=== PATIENT | male | born 2000 | race Two or more races ===

== ENCOUNTER 2021-07-27 14:28 | Outpatient (REF) | payer OTHER, SELFPAY ==
[2021-07-27 15:36] LABS: Binax Internal Control QC Valid; Binax Lot number: 9864; Binax Now Covid-19 Ag Negative (Negative)
== END 2021-07-27 14:29 | disposition home or self-care (01) ==
LOC: HO.LAB 14:28
PROVIDERS: Visit Provider Internal Medicine
DX: Z20.822 Contact with and (suspected) exposure to COVID-19 (principal)
CPT/HCPCS: C9803

== ENCOUNTER 2022-08-15 21:56 | Emergency (ER) | payer OTHER, SELFPAY ==
--- NOTE | ~2022-08-15 | CT_ITS ---
EXAMINATION: CT ABDOMEN AND PELVIS WITHOUT CONTRAST CLINICAL INFORMATION: Periumbilical pain COMPARISON: None TECHNIQUE: Multidetector volumetric imaging was performed from the superior aspect of the liver through the pubic symphysis. Sagittal and coronal reformatted images were obtained on the technologist's workstation. This CT examination was performed using dose optimization techniques as appropriate, variously including the following: *Automated exposure control *Adjustment of mA and/or kV according to patient size (this includes techniques or standardized protocols for targeted exams where dose is matched to indication/reason for exam; i.e. extremities or head) *Use of iterative reconstruction technique DLP: 440 mGy-cm FINDINGS: LUNG BASES: The visualized lung bases are unremarkable. LIVER, GALLBLADDER, AND BILIARY TREE: The liver is normal in size, shape, and attenuation. No focal hepatic lesion or biliary ductal dilatation is present. The gallbladder is unremarkable with no evidence of radiopaque gallstones, gallbladder wall thickening, or obvious pericholecystic inflammatory changes. PANCREAS: Unremarkable. SPLEEN: Unremarkable. ADRENAL GLANDS: Unremarkable. KIDNEYS AND URETERS: The kidneys are normal in size, shape, and attenuation. No hydronephrosis, hydroureter, or calculi seen. No perinephric stranding. BLADDER: Unremarkable. GASTROINTESTINAL TRACT: The small and large bowel are unremarkable. The appendix is nonvisualized. No inflammation of the mesentery.. ABDOMINAL WALL: No significant hernia is appreciated. LYMPH NODES: Normal. VASCULAR: Unremarkable. PELVIC VISCERA: Unremarkable. OSSEOUS STRUCTURES: Unremarkable. CT/CT abdomen pelvis wo IV con IMPRESSION: No acute abnormality CT scan abdomen pelvis. Fleischner guidelines were followed.
--- NOTE | ~2022-08-15 | XR_ITS ---
EXAMINATION: XR CHEST CLINICAL INFORMATION: Leukocytosis COMPARISON: None TECHNIQUE: Frontal view of the chest was obtained. FINDINGS: No significant abnormality is noted involving the heart, lungs, mediastinum, bony thorax or soft tissues. XR/XR chest 1V IMPRESSION: Unremarkable examination.
[2022-08-15 22:07] VITALS: BP 117/80; PULSE 109; RESP 20; TEMP 36.6; O2SAT 98; BMI 22.4
[2022-08-15 22:37] LABS: Basophils Percent Auto 0.1 % (0-2); Eosinophils Percent Auto 0.1 % (0-4); Hematocrit 47.3 % (42.0-52.0); Hemoglobin 16.6 g/dl (14.0-18.0); Imm Gran Abs Auto 0.07 X10*3/uL (0.00-0.03); Imm Gran Pct Auto 0.4 % (0.0-0.4); Lymphocytes Absolute Auto 0.4 X10*3/uL (1.2-4.9); Lymphocytes Percent Auto 1.8 % (20-40); MANUAL DIFF FLAG SCAN; Mean Corpuscular HGB Conc 35.1 g/dl (31.0-36.0); Mean Corpuscular Hemoglobin 28.6 pg (27.0-33.0); Mean Corpuscular Volume 81.4 fL (80.0-98.0); Mean Platelet Volume 11.8 fL (9.4-12.4); Monocytes Absolute Auto 0.6 X10*3/uL (0.1-1.2); Monocytes Percent Auto 3.4 % (2-11); Neutrophils Percent Auto 94.2 % (45-73); Platelet Count 203 X10*3/uL (160-400); Red Blood Count 5.81 X10*6/uL (4.60-5.80); Red Cell Distribution Width 12.4 % (11.0-16.0); SCAN SMEAR FLAG 1; White Blood Count 19.1 X10*3/uL (4.8-10.8)
[2022-08-15 22:52] LABS: Alanine Aminotransferase 19 U/L (0-40); Albumin Level 4.6 g/dL (3.5-5.0); Alkaline Phosphatase 80 U/L (39-117); Anion Gap 15 (12-20); Aspartate Amino Transferase 15 U/L (5-37); Bilirubin Direct 0.3 mg/dL (0.0-0.5); Bilirubin Total 1.3 mg/dL (0.0-1.0); Blood Urea Nitrogen 17 mg/dL (9-16); Carbon Dioxide 22 mmol/L (22-29); Chloride 105 mmol/L (96-108); Creatinine Clr Calc Pharmacy 135.1; Estimated Glomerular Filt Rate > 60; Glucose Random 130 mg/dL (60-115); Lipase 13 U/L (8-78); Potassium 3.9 mmol/L (3.3-5.1); Sodium 138 mmol/L (135-145)
[2022-08-15 22:53] LABS: SLIDE REVIEW VERIFIED
[2022-08-15 23:12] LABS: Influenza A PCR NEGATIVE (Negative); Influenza B PCR NEGATIVE (Negative); Resp Syncy Virus RNA Qual PCR NEGATIVE (Negative); SARS COV2 PCR INHOUSE NEGATIVE (Negative)
[2022-08-16] MEDS: 0.9 % Sodium Chloride 1,000 ML 999 ML IV (00:17)
[2022-08-16] MEDS: ondansetron HCL 4 MG/2 ML VIAL IVPUSH (00:17)
[2022-08-16 00:36] VITALS: BP 123/81; PULSE 83; RESP 18; O2SAT 99
--- NOTE | 2022-08-16 01:47 | ED_ITS ---
HPI - General Adult General Chief complaint: Abdominal Pain Stated complaint: vomiting, abdominal pain, headache Time Seen by Provider: 08/16/22 00:00 Source: patient Mode of arrival: ambulatory Limitations: no limitations History of Present Illness HPI narrative: Patient comes to the emergency room complaining of nausea, vomiting, abdominal pain, diffuse body aches, headache starting this morning. Patient states that he is concerned, because his friend recently was brought into the emergency room here at [facility], according to the patient she was diagnosed with ?meningitis and is still pretty sick up on the floor. Related Data Previous Rx's Medication Instructions Recorded azithromycin 250 mg tablet 250 mg PO DAILY 5 days #6 tabs 02/21/21 (Zithromax) ondansetron 4 mg disintegrating 4 mg PO Q6H PRN nausea and 08/16/22 tablet vomiting #14 tabs Allergies Allergy/AdvReac Type Severity Reaction Status Date / Time No Known Allergies Allergy Verified 08/15/22 22:07 Review of Systems Review of Systems: Constitutional : No Weight loss, No Fever, No Chills, No Night Sweats, complaining of fatigue, generalized malaise ENT/Mouth : No Hearing loss, No Ear Pain, No Nasal Congestion, No Sinus Pain, No Hoarseness, No sore throat, No Rhinorrhea, No Swallowing Difficulty Eyes: No Eye Pain, No Swelling, No Redness, No Foreign Body, No Discharge, No Vision Changes Cardiovascular : No Chest Pain, No SOB, No Dyspnea on Exertion, No Orthopnea, No Edema, No Palpitations Respiratory : No Cough, No Sputum, No Wheezing, No Smoke Exposure, No Dyspnea Gastrointestinal : Complaining of nausea vomiting, No Diarrhea, No Constipation, complaining of diffuse abdominal cramping Genitourinary : no irregular bleeding, No Dysuria, No Urinary Frequency, No Hematuria, No Urinary Incontinence, No Urgency, No Flank Pain, No Urinary Flow Changes, No Hesitancy Musculoskeletal : complaining of diffuse Myalgias, complaining of lower extremity Joint pain bilaterally from the hips down Skin : No Skin Lesions, No rash Neuro : No Weakness, No Numbness, No Paresthesias, No Loss of Consciousness, No Dizziness, No Headache Psych : No Anxiety/Panic, No Depression, No SI/HI/AH/VH, No Social Issues, Heme/Lymph: No Bruising, No Bleeding,No Lymphadenopathy Endocrine : No Polyuria, No Polydipsia, No Temperature Intolerance [facility] [place] Social History Social History Smoked in Last 30 Days: No Advance Directives: No Advance Directives Information Provided: Yes Physical Exam ED Vital Signs: Vital Signs - 24 hr 08/15/22 22:07 08/16/22 00:36 Temperature 98 F Pulse Rate 109 H 83 Respiratory Rate 20 18 Blood Pressure 117/80 123/81 Pulse Oximetry 98 99 Oxygen Delivery Method Room Air Room Air BMI result Body Mass Index 22.4 Const Other: Appearance: Alert. Oriented X3. No acute distress. Well-appearing Eyes: Pupils equal, round and reactive to light. ENT: Pharynx normal. Neck: Normal inspection. Neck supple. No lymph nodes noted. No crepitus CVS: Normal heart rate and rhythm. Pulses normal. Normal S1 and S2 Respiratory: No respiratory distress. Breath sounds normal. No Wheezing. No rales Abdomen: Soft and nontender. No rigidity. No distention. Skin: Skin warm and dry. Normal skin color. Normal skin turgor. Extremities: No lower extremity edema. No Lacerations. No Rash Neuro: Oriented X 3. No motor deficit. No sensory deficit. Moving all extremities. No slurred speech. CN 2 through 12 grossly intact Psych: calm, cooperative, normal affect Course Course Course Narrative: -patient states that his close friend was recently diagnosed with meningitis, he does not know if it was bacterial or viral. -I was informed that the patient is here in this hospital. The patient gave me the other patient's name. I actually saw her in the emergency room a few days ago and I spoke to the hospitalist to admitted her. 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 However, we will do all the labs that we need to make sure that he is safe -patient's white blood cell count is 19, likely source of infection and his GI, gastroenteritis -I discussed the patient with Dr. Mclaughlin, Vinc[place]ena does not need any prophylactic medications. We will go ahead and obtain blood cultures, if positive, he will be called back. It would be very unlikely that the patient has a same condition. More than likely, patient has gastritis versus viral syndrome. Patient can be discharged home -patient's lactic acid and blood cultures are pending. The have been drawn in precaution given the above mentioned situation with the other patient Medications Administered Discontinued Medications Generic Name Dose Route Start Last Admin Trade Name Freq PRN Reason Stop Dose Admin Sodium Chloride 1,000 mls @ 999 mls/hr 08/15/22 23:45 08/16/22 00:17 Ns IV 08/16/22 00:45 999 mls/hr .Q1H1M JOHN Administration Ondansetron HCl 4 mg 08/15/22 23:51 08/16/22 00:17 Ondansetron Hcl 4 Mg/2 Ml Vial IVPUSH 08/15/22 23:52 4 mg ONCE ONE Administration Medical Decision Making Medical Decision Making [facility] Narrative: -patient's white blood cell count elevated likely secondary to reactive leukocytosis. Sepsis is not suspected. Patient's blood pressure 123/81, heart rate 83, no fever. Lactic acid may be secondary to vomiting. Still, sepsis not suspected Differential Diagnosis Differential Diagnoses: The differential diagnosis associated with the presentation includes (Gastroenteritis, peptic ulcer, gastritis) Consult Healthcare Provider Management of the patient was discussed with: Manager Molecular (Infectious disease) Lab Data [facility] Lab Attestation statement: I reviewed the patient's lab results. 08/15/22 22:30 08/15/22 22:30 Labs: Lab Results 08/15/22 08/15/22 08/15/22 Range/Units 22:30 22:30 22:30 WBC 19.1 H (4.8-10.8) X10*3/uL RBC 5.81 H (4.60-5.80) X10*6/uL Hgb 16.6 (14.0-18.0) g/dl Hct 47.3 (42.0-52.0) % MCV 81.4 (80.0-98.0) fL MCH 28.6 (27.0-33.0) pg MCHC 35.1 (31.0-36.0) g/dl RDW 12.4 (11.0-16.0) % Plt Count 203 (160-400) X10*3/uL MPV 11.8 (9.4-12.4) fL Immature Gran % (Auto) 0.4 (0.0-0.4) % Neut % (Auto) 94.2 H (45-73) % Lymph % (Auto) 1.8 L (20-40) % Dukes % (Auto) 3.4 (2-11) % Eos % (Auto) 0.1 (0-4) % Baso % (Auto) 0.1 (0-2) % Lymph # (Auto) 0.4 L (1.2-4.9) X10*3/uL Dukes # (Auto) 0.6 (0.1-1.2) X10*3/uL Eos # (Auto) 0.0 (0.0-0.4) X10*3/uL Baso # (Auto) 0.0 (0.0-0.2) X10*3/uL Abs Immat Gran (auto) 0.07 H (0.00-0.03) X10*3/uL Absolute Neuts (auto) 18.0 H (2.0-8.3) x10*3/uL Absolute Nucleated RBC 0.000 (0.0-0.012) X10*3/uL Nucleated RBC % (auto) 0.0 (0.0-0.2) /100WBC Smear Tech's Comments VERIFIED Sodium 138 (135-145) mmol/L Potassium 3.9 (3.3-5.1) mmol/L Chloride 105 (96-108) mmol/L Carbon Dioxide 22 (22-29) mmol/L Anion Gap 15 (12-20) BUN 17 H (9-16) mg/dL Creatinine 0.90 (0.5-1.4) mg/dL Estim Creat Clear Calc 135.1 Estimated GFR > 60 Random Glucose 130 H (60-115) mg/dL Calcium 10.0 (8.4-10.2) mg/dL Total Bilirubin 1.3 H (0.0-1.0) mg/dL Direct Bilirubin 0.3 (0.0-0.5) mg/dL AST 15 (5-37) U/L ALT 19 (0-40) U/L Alkaline Phosphatase 80 (39-117) U/L Total Protein 7.0 (6.5-8.0) g/dL Albumin 4.6 (3.5-5.0) g/dL Lipase 13 (8-78) U/L Influenza Type A (PCR) NEGATIVE (Negative) Influenza Type B (PCR) NEGATIVE (Negative) RSV RNA Qual (PCR) NEGATIVE (Negative) SARS-CoV-2 RNA (RT-PCR) NEGATIVE (Negative) Independent Interpretation Interpretation: Due to system failure, x-rays and CT scan program cannot open Radiology Impression Discussion of test interpretation with radiology: I have reviewed the radiologist's reading. Radiologist Impression: Chest x-ray: FINDINGS: No significant abnormality is noted involving the heart, lungs, mediastinum, bony thorax or soft tissues. XR/XR chest 1V IMPRESSION: Unremarkable examination. Abdomen pelvis CT scan: LUNG BASES: The visualized lung bases are unremarkable.? LIVER, GALLBLADDER, AND BILIARY TREE: The liver is normal in size, shape, and attenuation. No focal hepatic lesion or biliary ductal dilatation is present. The gallbladder is unremarkable with no evidence of radiopaque gallstones, gallbladder wall thickening, or obvious pericholecystic inflammatory changes.? PANCREAS: Unremarkable.? SPLEEN: Unremarkable.? ADRENAL GLANDS: Unremarkable.? KIDNEYS AND URETERS: The kidneys are normal in size, shape, and attenuation. No hydronephrosis, hydroureter, or calculi seen. No perinephric stranding. ? BLADDER: Unremarkable.? GASTROINTESTINAL TRACT: The small and large bowel are unremarkable. The appendix is nonvisualized. No inflammation of the mesentery..? ABDOMINAL WALL: No significant hernia is appreciated.? LYMPH NODES: Normal. VASCULAR: Unremarkable. PELVIC VISCERA: Unremarkable.? OSSEOUS STRUCTURES: Unremarkable.? CT/CT abdomen pelvis wo IV con IMPRESSION: No acute abnormality CT scan abdomen pelvis. ? Fleischner guidelines were followed. Discharge Plan Discharge Clinical Impression: Gastroenteritis Patient Disposition: Home, Self-Care Instructions: Gastroenteritis (ED), Acute Nausea and Vomiting (ED) Additional Instructions: Please follow-up with your primary care physician tomorrow. If you have any worsening or new symptoms, please return to the emergency room or call 911 Prescriptions: New ondansetron 4 mg tablet,disintegrating 4 mg PO Q6H PRN (Reason: nausea and vomiting) Qty: 14 0RF No Action azithromycin [Zithromax] 250 mg tablet 250 mg PO DAILY 5 Days Qty: 6 0RF
[2022-08-16] MEDS: Prochlorperazine Edisylate 10 MG/2 ML VIAL IVPUSH (02:14)
[2022-08-16] MEDS: Ketorolac Tromethamine 30 MG/ML VIAL IVPUSH (02:14)
[2022-08-16 02:40] LABS: Lactic Acid 0.8 mmol/L (0.5-2.0)
== END 2022-08-16 02:26 | disposition home or self-care (01) ==
PROVIDERS: Emergency Provider Emergency Medicine; PCP Internal Medicine
DX: K52.9 Noninfective gastroenteritis and colitis, unspecified (principal); Z20.822 Contact with and (suspected) exposure to COVID-19; Z20.828 Contact with and (suspected) exposure to other viral communicable diseases; Z79.899 Other long term (current) drug therapy
CPT/HCPCS: 0241U; 36415; 71045; 74176; 80048; 80076; 83605; 83690; 85025; 87040; 96361; 96374; 96375; 99284; J1885; J2405

== ENCOUNTER 2024-08-07 09:30 | Outpatient (REF) | payer OTHER, SELFPAY ==
[2024-08-07 15:07] LABS: Influenza A PCR NEGATIVE (Negative); Influenza B PCR NEGATIVE (Negative); Resp Syncy Virus RNA Qual PCR NEGATIVE (Negative); SARS COV2 PCR INHOUSE NEGATIVE (Negative)
== END 2024-08-07 09:31 | disposition home or self-care (01) ==
LOC: HO.LNP 09:30
PROVIDERS: Visit Provider Nurse Practitioner Family
DX: R09.89 Other specified symptoms and signs involving the circulatory and respiratory systems (principal); R68.89 Other general symptoms and signs; Z13.9 Encounter for screening, unspecified
CPT/HCPCS: 0241U; 87880; 99212

== ENCOUNTER 2025-03-08 08:14 | Outpatient (REF) | payer OTHER, SELFPAY ==
--- NOTE | ~2025-03-08 | XR_ITS ---
EXAMINATION: XR KNEE, RIGHT CLINICAL INFORMATION: M25.561 - Pain in right knee COMPARISON: None available. TECHNIQUE: Three views of the right knee. FINDINGS: No fracture or joint effusion. Alignment is anatomic. Joint spaces are maintained. No abnormal soft tissue calcification. XR/XR knee RT 3V IMPRESSION: Unremarkable right knee Electronically signed by: Antoni Cristina MD 03/08/2025 11:15 AM EDT
--- OUTSIDE RECORDS SUMMARY | 2025-03-10 08:39 | XMS_ITS | Clinical Summary ---
Author Organization [facility] [employer] [facility] ity Address [address] [place] [address] Care Team Providers Care Mill Set Up Name Role Phone Unavailable Primary Care Provider [...]
== END 2025-03-08 08:15 | disposition home or self-care (01) ==
LOC: HO.HOSX 08:14
PROVIDERS: Visit Provider Orthopaedic Surgery
DX: S83.241A Other tear of medial meniscus, current injury, right knee, initial encounter (principal); Y92.321 Football field as the place of occurrence of the external cause; Y92.322 Soccer field as the place of occurrence of the external cause; X58.XXXA Exposure to other specified factors, initial encounter
CPT/HCPCS: 73562; 99202

== ENCOUNTER 2025-03-08 10:47 | Outpatient (AMB) | payer OTHER, SELFPAY ==
--- NOTE | 2025-03-08 10:56 | A.OFFVIS_ITS ---
Vital Signs 03/08/25 11:00 Height 6 ft Weight 180 lb BMI 24.4 Intake Visit Reasons: Right knee pain and giving way Intake Note: Mikey is a 24 year old male who presents with complaints of progressively worsening right knee pain and giving way. He describes his pain as sharp in nature. Most of the pain is along the anterior and medial aspects of his knee. The patient states that he suffered several injuries to his right knee in the past while playing football and soccer. He has failed the last 6 weeks of conservative treatment which has included a home exercise program, physical therapy exercises, Tylenol and anti-inflammatory medicines. At this point is right knee pain and mechanical symptoms are interfering with his activities of daily living and his ability to sleep well through night. 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 Assessment & Plan Assessment & Plan (1) Tear of medial meniscus of right knee: Code(s): S83.241A - Other tear of medial meniscus, current injury, right knee, initial encounter Category: Medical Plan Mr. Benavidez presents with right knee pain and mechanical symptoms most likely due to a tear of his medial meniscus. Thus, I will send the patient for an MRI of his right knee for further evaluation. I will see him back once the MRI is completed to discuss the findings and treatment options. Feel free to call me at any time should questions regarding his orthopedic management arise. Thank you very much for asking me to see this very friendly gentleman. I spent 20 minutes in reviewing the patient's records and imaging studies, s eeing the patient and documenting in the medical record. Orders: Orders XR knee RT 3V Today M25.561 - Pain in right knee MR knee RT wo con 03/09/25 S83.241A - Other tear of medial meniscus, current injury, right knee, initial encounter Coding Level of Care Code New Pt Level 3 (54516) Complex EM visit Add On G2211 Diagnoses Tear of medial meniscus of right knee S83.241A
[2025-03-08 11:00] VITALS: BMI 24.4
--- OUTSIDE RECORDS SUMMARY | 2025-03-08 11:39 | XMS_ITS | Clinical Summary ---
Author Organization [facility] [email or web address] [facility] ity Address [address] [place] [address] Care Team Providers Care Emt B Name Role Phone Unavailable Primary Care Provider Unavailabl e Social History Tobacco Use Types Packs/Day Years Used Date Smoking Tobacco: Never Assessed Sex and Gender Information Value Date Recorded Sex Assigned at Not on file Legal Sex Male 3:01 AM EST Gender Identity Not on file Sexual Orientation Not on file Plan of Treatment Health Maintenance Due Date Last Done Comments HPV Vaccines (1 - Male 3-dos e series) 2013 DTaP,Tdap,and Td Vaccines (1 - Tdap) 2017 Hepatitis B Vaccines (1 of 3 - 19+ 3-dose series) 2017 HIV Screening 06/16/2022 Hepatitis C Screening 06/16/2022 Social Influencers of Health Screening 06/16/2022 COVID-19 Vaccine (1 - 2023-2 5 season) 2024 Depression Screening 07/14/2024 Influenza Vaccine (#1) 2025 HIB Vaccines Aged Out No longer eligi ble based on patient's age to complete this topic Hepatitis A Vaccines Aged Out No long er eligible based on patient's age to complete this topic IPV Vaccines Aged Out No longer eligi ble based on patient's age to complete this topic MMR Vaccines Aged Out No longer eligi ble based on patient's age to complete this topic Meningococcal ACWY Vaccine Aged Out N o longer eligible based on patient's age to complete this topic Meningococcal B Vaccine Aged Out No l onger eligible based on patient's age to complete this topic Pneumococcal Vaccine: Pediat rics (0 to 5 Years) and At-Risk Patients (6 to 49 Years) Aged Out No longer eligible b ased on patient's age to complete this topic RSV Immunization Patients Un shonna 20 months Aged Out No longer eligible b ased on patient's age to complete this topic Varicella Vaccines Aged Out No longer eligible based on patient's age to complete this topic
--- OUTSIDE RECORDS SUMMARY | 2025-03-08 11:39 | XMS_ITS ---
Author Name [facility] Organization Unknown Care Team Organization Name Specialty Phone Email Start Date End Da te [facility]ev [facility] 05/21/2022 4
== END 2025-03-08 11:27 | disposition home or self-care (01) ==
LOC: HO.HOS 10:48
PROVIDERS: PCP Internal Medicine; Visit Provider Orthopaedic Surgery
DX: S83.241A Other tear of medial meniscus, current injury, right knee, initial encounter (principal)
CPT/HCPCS: 99203

== ENCOUNTER → 2025-03-08 10:51 | Outpatient (BNV) | payer OTHER, SELFPAY | PROVIDERS: Visit Provider Radiology Diagnostic Radiology | DX: M25.561 Pain in right knee (principal) | CPT/HCPCS: 73562 ==

== ENCOUNTER 2025-03-30 11:32 | Outpatient (AMB) | payer OTHER, SELFPAY ==
[2025-03-30 11:38] VITALS: BP 126/74; PULSE 85; TEMP 37.3; O2SAT 97; BMI 25.8
--- NOTE | 2025-03-30 11:38 | AM.OFFWIN_ITS ---
Intake Vital Signs 03/30/25 11:38 Height 6 ft Weight 190 lb BMI 25.8 BP 126/74 Blood Pressure Location Rt brachial Position Sitting Pulse 85 Pulse Source Pulse Oximeter Temp 99.1 F Temp Source Oral Pulse Oximetry (%) 97 Oxygen Delivery Method Room Air Intake Visit Reasons: TSO sore throat congestion Intake Note: pt presents with sore throat, sinus congestion, coughing, body aches, fatigue Patient Tobacco Use Status: Former Tobacco user Allergies No Known Allergies Allergy (Verified 03/30/25 11:43) Do you need a note to return to daycare/school/sports/work: Yes Return to daycare/school/sports/work/other note: work HPI HPI Comments History of Present Illness Details History - The patient is a 24-year-old male pres enting with a sore throat and persistent cough. - Symptoms began approximately three day s ago, initially as a headache, progressing to a sore throat and cough. - No longer experiencing headaches; james es phlegm production, chest pain, or wheezing. - Occasionally experiences shortness of breath; no gastrointestinal symptoms reported. - No history of asthma, but family histo ry present; able to eat and drink without difficulty. - Girlfriend had similar symptoms recent ly, tested negative for respiratory infections. - He does not smoke. - He needs a note for work. - He has not taken anything except for t ylenol. Physical Exam General: Cooperative, healthy appearing, comfortable and no acute distress Orientation/consciousness: Patient oriented x3 Limitations: No limitations Head: Normal to inspection Ears: Hearing grossly normal bilaterally, external ears normal and TM's normal bilaterally Nose: Normal external nose present, normal nares present, and no nasal discharge present. Face and sinus: Sinuses nontender to palpation. Mouth: Normal oral and palatal mucosa present and moist mucous membranes noted. Throat: Tonsils normal. Uvula is midline. Posterior oropharynx with erythema and no exudates. Eyes: Appearance normal, both eyes and all related structures Neck: Normal visual inspection, full ROM. No lymphadenopathy noted. Respiratory: Clear to auscultation bilaterally. Normal respiratory effort, able to speak in complete sentences. No respiratory distress, not tachypneic, no tripod positioning and no use of accessory muscles. Cardiovascular: Regular rate and rhythm. 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 Review of Systems Const All systems reviewed & are unremarkable except as noted in HPI and below Physical Exam Vital Signs: Last Vital Signs Temp 99.1 F 03/30/25 11:38 Pulse 85 03/30/25 11:38 BP 126/74 03/30/25 11:38 Pulse Ox 97 03/30/25 11:38 Oxygen Delivery Method Room Air 03/30/25 11:38 BMI result Body Mass Index 25.8 Assessment & Plan Assessment & Plan (1) URI with cough and congestion: Code(s): J06.9 - Acute upper respiratory infection, unspecified Plan Most likely URI vs covid vs flu vs RSV vs viral illness plan - tylenol or motrin as needed for pain or fever - drink lots of fluids - diet as tolerated - will order a resp panel to r/o viruses - flonase and zyrtec daily - tessalon perles as needed for cough - follow up with PCP Orders: Orders Resp Pathogen Panel - [facility] Today J06.9 - Acute upper respiratory infection, unspecified Medications: New fluticasone propionate 50 mcg/actuation administer into each nostril 1 spray intranasal Q12H 16 grams 0RF benzonatate 100 mg PO bid-tid PRN 21 caps 0RF Cough 7 days cetirizine-pseudoephedrine 5-120 mg ER 1 tab PO BID 14 tabs 0RF 7 days Coding Level of Care Code New Pt Level 3 (19938) Diagnoses URI with cough and congestion J06.9
== END 2025-03-30 12:06 | disposition home or self-care (01) ==
PROVIDERS: Visit Provider Physician Assistant Medical
DX: Z13.9 Encounter for screening, unspecified (principal); J06.9 Acute upper respiratory infection, unspecified

== ENCOUNTER 2025-03-30 11:32 | Outpatient (REF) | payer OTHER, SELFPAY ==
[2025-03-30 15:56] LABS: Chlamydia pneumoniae PCR Not Detected (Not Detect.); Coronavirus 229E PCR Not Detected (Not Detect.); Coronavirus HKU1 PCR Not Detected (Not Detect.); Coronavirus NL63 PCR Not Detected (Not Detect.); Coronavirus OC43 PCR Not Detected (Not Detect.); RSV PCR Not Detected (Not Detect.); Rhino/Enterovirus PCR Not Detected (Not Detect.)
[2025-03-30 16:03] LABS: Influenza A H1 PCR Not Detected (Not Detect.); Influenza A H1-2009 PCR Not Detected (Not Detect.); Influenza A H3 PCR Not Detected (Not Detect.); SARS-CoV-2 PCR Detected (Not Detect.)
--- OUTSIDE RECORDS SUMMARY | 2025-03-30 17:21 | XMS_ITS | Clinical Summary ---
Author Organization [facility] ity Address [address] [place] [address] Care Team Providers Care Music Education Director Name Role Phone Unavailable Primary Care Provider [...] 06/16/2022 Social Influencers of Health Screening 06/16/2022 Depression Screening 07/14/2024 COVID-19 Vaccine ( - 2023-2 5 season) 2025 Influenza Vaccine (#1) 2025 HIB Vaccines Aged [...]
== END 2025-03-30 11:33 | disposition home or self-care (01) ==
LOC: HO.LNP 11:32
PROVIDERS: Visit Provider Physician Assistant Medical
DX: J02.9 Acute pharyngitis, unspecified (principal); R05.9 Cough, unspecified; R51.9 Headache, unspecified; Z87.891 Personal history of nicotine dependence
CPT/HCPCS: 87633; 87880; 99202

== ENCOUNTER → 2025-04-11 19:38 | Outpatient (BNV) | payer OTHER, SELFPAY | PROVIDERS: Visit Provider Radiology Diagnostic Radiology | DX: M25.461 Effusion, right knee (principal) | CPT/HCPCS: 73721 ==

== ENCOUNTER 2025-04-11 19:41 | Outpatient (REF) | payer OTHER, SELFPAY ==
--- NOTE | ~2025-04-11 | MR_ITS ---
EXAMINATION: MRI RIGHT KNEE WITHOUT CONTRAST HISTORY: S83.241A - Other tear of medial meniscus, current injury, right knee COMPARISON: Correlation is made with plain films of the right knee dated 03/08/2025. TECHNIQUE: Coronal T1 and fat-suppressed proton density, sagittal proton density and fat-suppressed proton density, and axial fat suppressed T2 weighted MR images of the right knee were obtained. FINDINGS: Bone marrow: Bone marrow signal intensity is normal. Joint effusion: There is a small joint effusion. Mcekon's cyst: There is no Mckeon's cyst. Articular cartilage: Intact Muscles/soft tissues: The visualized muscles demonstrate normal signal intensity. There is mild edema at the superolateral aspect of Hoffa's fat pad. Anterior cruciate ligament: Intact Posterior cruciate ligament: Intact Medial collateral ligament: Intact Lateral collateral ligament: Intact Medial meniscus: Intact Lateral meniscus: Intact Flexor mechanism: The popliteus, gastrocnemius, and hamstring tendons are intact. Quadriceps tendon: Intact Patellar tendon: Intact Patellar retinacula: Intact MR/MR knee RT wo con IMPRESSION: Mild edema at the superolateral aspect of Hoffa's fat pad. Small joint effusion. Otherwise unremarkable MRI of the right knee. Electronically signed by: Jewel Hodge MD 04/12/2025 07:13 AM EDT
--- OUTSIDE RECORDS SUMMARY | 2025-04-11 19:45 | XMS_ITS | Clinical Summary ---
Author Organization [facility] [employer] [facility] ity Address [address] [place] [address] Care Team Providers Care Cook Supervisor Name Role Phone Unavailable Primary Care Provider [...]
== END 2025-04-11 19:42 | disposition home or self-care (01) ==
LOC: HO.MRI 19:41
PROVIDERS: Visit Provider Orthopaedic Surgery
DX: S83.241A Other tear of medial meniscus, current injury, right knee, initial encounter (principal)
CPT/HCPCS: 73721

== ENCOUNTER 2025-04-13 08:19 | Outpatient (AMB) | payer OTHER, SELFPAY ==
--- NOTE | 2025-04-13 08:25 | AM.OFFWIN_ITS ---
Intake Vital Signs 04/13/25 08:26 Height 6 ft Weight 194 lb BMI 26.3 BP 130/80 Blood Pressure Location Rt brachial Position Sitting Respiration 16 Pulse 63 Pulse Source Pulse Oximeter Temp 98 F Temp Source Oral Pulse Oximetry (%) 99 Oxygen Delivery Method Room Air Intake Visit Reasons: ep fell at work Intake Note: Pt is here today took a fall at work this morning from a ladder, landed on his back. Pt c/o mid back to upper back pain Patient Tobacco Use Status: Former Tobacco user Allergies No Known Allergies Allergy (Verified 03/30/25 11:43) HPI HPI Comments History of Present Illness Details History of Present Illness - The patient is a 24-year-old male pres enting with a back injury following a fall from a ladder. - The fall occurred from approximately 1 0 feet, resulting in immediate back pain without loss of consciousness. - He was able to sit up after the fall. - He states that he went and sat in the office for awhile and then he was told to come to urgent care. - The patient reports pain exacerbated b y deep breathing, with no associated head injury or neurological symptoms. - The patient has pain in the middle of the back with no radiation of the pain. - He has no pain in the shoulders, legs, chest, neck or head. - He denies bruising, swelling, or abras aions. - He denies saddle anesthesia, numbness, tingling, or incontinence. - He denies LOC or HOWELL. Physical Exam General: Cooperative, healthy appearing, comfortable, no acute distress and well developed Orientation: Patient oriented x3 Limitations: No limitations Head: Normal to inspection Neck: Normal visual inspection, full ROM. No midline spinous tenderness noted. Respiratory: Normal respiratory effort and able to speak in complete sentences. No w/r/r noted. Skin: No rashes or lesions noted. No abrasions, bruises, or swelling noted. Neuro: Patient oriented x3, CN 2-12 intact, gait normal. Sensation is intact. Back/spine: Tenderness to palpation in the mid thoracic spine, no TTP cervical or lumbar spine. No step offs noted. No TTP of the paraspinous muscles in the thoracic region. No SI joint tenderness noted. Extremities: FROM of the UE and LE bilaterally. Strength is 5/5 on the UE and LE. Negative SLR. Ambulates with steady gait. Patient was informed and verbally consented to the use of an ambient scribe for clinic note documentation during this visit. [facility] Social History (Updated 03/08/25 @ 11:01 by Swathi Sanches) Patient Tobacco Use Status: Former Tobacco user Current occupational status: employed Current occupation: Commercial Manager - [employer] Review of Systems Const All systems reviewed & are unremarkable except as noted in HPI and below Physical Exam Vital Signs: Last Vital Signs Temp 98 F 04/13/25 08:26 Pulse 63 04/13/25 08:26 Resp 16 04/13/25 08:26 BP 130/80 04/13/25 08:26 Pulse Ox 99 04/13/25 08:26 Oxygen Delivery Method Room Air 04/13/25 08:26 BMI result Body Mass Index 26.3 Results Reviewed Results Reviewed: will review the x-ray in the office today Assessment & Plan Assessment & Plan (1) Fall from ladder: Code(s): W11.XXXA - Fall on and from ladder, initial encounter Qualifiers: Encounter type: initial encounter Qualified Code(s): W11.XXXA - Fall on and from ladder, initial encounter (2) Thoracic back pain: Code(s): M54.6 - Pain in thoracic spine Qualifiers: Chronicity: acute Back pain laterality: midline Qualified Code(s): M54.6 - Pain in thoracic spine Plan Most likely contusion vs fracture vs strain Plan - An x-ray of the thoracic spine is ordered to rule out fractures due to the fall. - The patient is advised to take pain medication and a muscle relaxant for symptom management. - The patient is advised to take two days off work to allow for recovery and to monitor symptoms. - rest, heat to the area - no heavy lifting - will give him a note for work - will call with the results - follow up with PCP Orders: Orders XR thoracic spine 3V Today W11.XXXA - Fall on and from ladder, initial encounter Medications: New cyclobenzaprine Take 1-2 tablets every 8 hours as needed for muscle spasms 5 mg PO Q8H PRN 20 tabs 0RF Muscle Spasm 7 days meloxicam 7.5 mg PO DAILY 10 tabs 0RF Coding Level of Care Code Est Pt Level 4 (39348) Diagnoses Fall from ladder, initial encounter W11.XXXA Encounter type: initial encounter Acute midline thoracic back pain M54.6 Chronicity: acute Back pain laterality: midline
[2025-04-13 08:26] VITALS: BP 130/80; PULSE 63; RESP 16; TEMP 36.6; O2SAT 99; BMI 26.3
--- OUTSIDE RECORDS SUMMARY | 2025-04-13 08:47 | XMS_ITS | Clinical Summary ---
Author Organization [facility] ity Address [address] [place] [address] Care Team Providers Care Park Maintainer Name Role Phone Unavailable Primary Care Provider [...] of 3 - 19+ 3-dose series) 2017 Depression Screening 07/14/2024 COVID-19 Vaccine (1 - 2023-2 5 season) 2025 Influenza Vaccine (#1) 2025 RSV Immunization Adult Patie nts (1 - 1-dose 75+ series) 2073 HIB Vaccines Aged Out No longer eligi [...]
== END 2025-04-13 09:20 | disposition home or self-care (01) ==
PROVIDERS: Visit Provider Physician Assistant Medical
DX: M54.6 Pain in thoracic spine (principal); W11.XXXA Fall on and from ladder, initial encounter; Z04.2 Encounter for examination and observation following work accident

== ENCOUNTER 2025-04-13 08:19 | Outpatient (REF) | payer OTHER, SELFPAY ==
--- NOTE | ~2025-04-13 | XR_ITS ---
EXAMINATION: XR THORACIC SPINE CLINICAL INFORMATION: W11.XXXA - Fall on and from ladder, initial encounter COMPARISON: None available. TECHNIQUE: 3 views of the thoracic spine were obtained. FINDINGS: There is no fracture or bone destruction seen and the vertebral alignment is normal. There is no disc space narrowing. There is no abnormality of the paraspinal soft tissues. Imaged lungs appear clear. Imaged mediastinal structures are normal. XR/XR thoracic spine 3V IMPRESSION: Normal thoracic spine radiographs. Electronically signed by: Issac Michel MD 04/13/2025 09:38 AM EDT
== END 2025-04-13 08:20 | disposition home or self-care (01) ==
LOC: HO.HMGCX 08:19
PROVIDERS: Visit Provider Physician Assistant Medical
DX: M54.6 Pain in thoracic spine (principal); W11.XXXA Fall on and from ladder, initial encounter; Y92.69 Other specified industrial and construction area as the place of occurrence of the external cause; Y99.0 Civilian activity done for income or pay
CPT/HCPCS: 72072; 99212

== ENCOUNTER → 2025-04-13 09:18 | Outpatient (BNV) | payer OTHER, SELFPAY | PROVIDERS: Visit Provider Radiology Diagnostic Radiology | DX: Z04.3 Encounter for examination and observation following other accident (principal) | CPT/HCPCS: 72072 ==

== ENCOUNTER 2025-04-26 13:45 | Outpatient (AMB) | payer OTHER, SELFPAY ==
--- NOTE | 2025-04-26 14:02 | A.OFFVIS_ITS ---
Vital Signs 04/26/25 14:06 Height 5 ft 11 in Weight 190 lb BMI 26.5 Intake Visit Reasons: OV-MRI Knee RT-Review Intake Note: Mikey is a 24 year old male who presents today as a MRI Review of his Right knee,04/11/25. Patient states that since last visit he feels that the right knee pain is manageable. He denies any locking or giving way. He does take meloxicam which gives him mild relief. Allergies No Known Allergies Allergy (Verified 04/26/25 14:06) Medication List - Last Reconciled 04/26/25 by Jerald Perez MD cyclobenzaprine 5 mg PO Q8H PRN 7 days meloxicam 7.5 mg PO DAILY PFSH Social History (Updated 03/08/25 @ 11:01 by Swathi Sanches) Patient Tobacco Use Status: Former Tobacco user Current occupational status: employed Current occupation: Assistant Football Coach - [employer] Physical Exam Vital Signs: BMI result Body Mass Index 26.5 Extrem Other: Right knee examination shows a minimal effusion, minimal crepitus with range of motion, negative Connie's test, no instability Results Reviewed Results Reviewed: MRI of the patient's right knee shows no significant degenerative changes, no evidence of meniscus or ligamentous injury Assessment & Plan Assessment & Plan (1) Right knee pain: Code(s): M25.561 - Pain in right knee Category: Medical Plan Mr. Benavidez presents with intermittent right knee discomfort most likely due to overuse. His MRI shows no evidence of meniscus or ligamentous injury. I had a lengthy discussion with the patient regarding the treatment options. At this point the patient's symptoms are tolerable to him. He will continue with his activity modifications. Will follow up with me on an as-needed basis should his symptoms worsen in any way. I spent 20 minutes in reviewing the patient's records and imaging studies, seeing the patient and documenting in the medical record. Coding Level of Care Code Est Pt Level 3 (35048) Complex EM visit Add On G2211 Diagnoses Right knee pain M25.561
[2025-04-26 14:06] VITALS: BMI 26.5
== END 2025-04-26 14:24 | disposition home or self-care (01) ==
LOC: HO.HOS 13:46
PROVIDERS: Visit Provider Orthopaedic Surgery
DX: M25.561 Pain in right knee (principal)
CPT/HCPCS: 99213

== ENCOUNTER → 2025-04-26 13:45 | Outpatient (BNVA) | payer OTHER, SELFPAY | PROVIDERS: Visit Provider Orthopaedic Surgery | DX: Z71.2 Person consulting for explanation of examination or test findings (principal); M25.561 Pain in right knee | CPT/HCPCS: 99212 ==